=== PATIENT | female | born 1940 | race Caucasian/White ===

== ENCOUNTER 2023-11-04 08:18 | Outpatient (AMB) | payer BC, SELFPAY ==
--- NOTE | 2023-11-04 08:07 | MHC.PC.OV ---
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: No Allergies No Known Allergies Allergy (Verified 11/04/23 08:24) Tobacco use date assessed: 11/04/23 Fall risk assessment: No Falls in past year Last assessed Fall Risk: 11/04/23 Dental Screening Dental Screen Date: 11/04/23 Did you have a dental visit in the last 12 months?: Yes Did you have a dental problem in the last 6 months where you did not have access to dental care?: No Was dental information given to patient?: Patient has dentist HPI HPI Comments History of Present Illness Details The patient is a 83 year old female with a past medical history of hypertension, low B12 presenting for preoperative exam. Left cataract Dr Garcia. CV: She is on lisinopril 2.5mg tablet oral daily. Blood pressure well controlled. Denies chest pain, shortness of breath, dizziness, LE edema No chronic lung disease, no diabetes, no sleep apnea, no CAD, no CKD. Preventive DXA 08/2017 -Tdap 2020 -Pneumonia vaccine Stopped mammograms. ROS CONSTITUTIONAL: Denies weight loss, fever and chills. HEENT: Denies changes in vision and hearing. RESPIRATORY: Denies SOB and cough. CV: Denies palpitations and CP GI: Denies abdominal pain, nausea, vomiting and diarrhea. : Denies dysuria and urinary frequency. MSK: Denies new myalgia and joint pain. SKIN: Denies rash and pruritus. NEUROLOGICAL: Denies headache PSYCHIATRIC: Denies recent changes in mood. PHYSICAL EXAM: GENERAL: Alert and oriented x 3. NAD EYES: EOMI. Anicteric. HENT: Moist mucous membranes. No scleral icterus. No cervical lymphadenopathy. LUNGS: Clear to auscultation bilaterally. CARDIOVASCULAR: Regular rate and rhythm. No murmur. No JVD. ABDOMEN: Soft, non-tender +bs EXTREMITIES: No edema. Non-tender. SKIN: No rashes or lesions. Warm. NEUROLOGIC: No focal neurological deficits. CN II-XII grossly intact PSYCHIATRIC: Cooperative. Appropriate mood and affect [facility] Medical History (Updated 11/04/23 @ 09:09 by Akua Berry MD) Retinal edema Obesity, Class I, BMI 30-34.9 Low vitamin B12 level HTN (hypertension) Surgical History (Updated 11/04/23 @ 08:51 by Olya Beltran CMA) History of right cataract extraction Family History (Updated 11/04/23 @ 08:52 by Olya Beltran CMA) Mother HTN (hypertension) Brother TIA (transient ischemic attack) Social History Housing: House Patient Tobacco Use Status: Never used Tobacco e-Cigarette/Vaping Use: Never Used Second Hand Smoke Exposure: No service: No Current occupational status: retired Cognitive needs: No Hearing needs: No Vision needs: No Questionnaire PHQ-9 Over the last 2 weeks, how often have you been bothered by any of the following problems? 1. Little interest or pleasure in doing things: not at all 2. Feeling down, depressed, or hopeless: not at all 3. Trouble falling or staying asleep, or sleeping too much: not at all 4. Feeling tired or having little energy: not at all 5. Poor appetite or overeating: not at all 6. Feeling bad about yourself - or that you are a failure or have let yourself or your family down: not at all 7. Trouble concentrating on things, such as reading the newspaper or watching television: not at all 8. Moving or speaking so slowly that other people could have noticed. Or the opposite - being so fidgety or restless that you have been moving around a lot more than usual: not at all 9. Thoughts that you would be better off or of hurting yourself in some way: not at all Total score: 0 Depression Screening Interpretation: Negative (NEG) Depression Screening Done: Yes 85315 - PHQ-9 Billing: Yes Source: Developed by Drs. Omer Worley, Nohemi Smith, Eugene Lord and colleagues, with an educational tyler from [employer]. Thrive Questionnaire Date Thrive assessed: 11/04/23 I am a: Patient Within the past 12 months, did the food you bought not last and you didn't have the money to get more?: Never true Within the past 12 months, did you worry whether your food would run out before you got money to buy more?: Never true Do you have trouble paying for medicines?: No Do you have trouble getting transportation to medical appointments?: No Do you have trouble paying your heating and electricity bill?: No Do you have trouble taking care of your child, family member or friend?: No Do you have trouble with day-to-day activities such as bathing, preparing meals, shopping, managing finances, etc.?: No Are you currently unemployed and looking for a job?: No Are you interested in more education?: No Please select the resources that you would like help with: None Currently or been in a relationship where the following occur: No concerns reported THRIVE Score: 0 AUDIT C Alcohol Use Questionnaire (AUDIT-C) 1. How often do you have a drink containing alcohol?: 2-3 times a week 2. How many drinks containing alcohol do you have on a typical day when you are drinking?: 1 or 2 3. How often do you have six or more drinks on one occasion?: Never Total Score: 3 DELORES-7 AMB Questionnaire DELORES-7 Date DELORES - 7 assessed: 11/04/23 Feeling nervous, anxious, or on edge: 1 = Several days Not being able to stop or control worryin = Several days Worrying too much about different things: 1 = Several days Trouble relaxin = Not at all Being so restless that it is hard to sit still: 0 = Not at all Becoming easily annoyed or irritable: 0 = Not at all Feeling afraid as if something awful might happen: 0 = Not at all Total DELORES-7 score (0-4 normal; 5-9 mild; 10-14 moderate; 15-21 severe): 3 Source: Developed by Drs. Omer Worley, Nohemi Smith, Eugene Lord and colleagues, with an educational tyler from [employer]. DELORES-7 Assessment Billing DELORES-7 Assessment Tool: DELORES-7 Assessment 23567 Physical exam (Primary Care) Tobacco/Smoking Status: Tobacco use Status Tobacco use date assessed 11/04/23 11/04/23 08:31 Patient Tobacco Use Status Never used Tobacco 11/04/23 08:31 e-Cigarette/Vaping Use Never Used 11/04/23 08:31 Depression Screening Interpretation: Negative (NEG) Currently or been in a relationship where the following occur: No concerns reported Assessment and Plan Assessment & Plan (1) Preop examination: Code(s): Z01.818 - Encounter for other preprocedural examination Plan: Patient evaluated for preoperative cardiac assessment No CAD, lung disease, CKD, ANGEL. HTN well controlled EKG reviewed She is average risk patient for low risk surgery Patient may proceed with procedure without additional cardiac testing She can take her BP pill with a sip of water on the day of procedure (2) HTN (hypertension): Code(s): I10 - Essential (primary) hypertension Qualifiers: Hypertension type: primary hypertension Qualified Code(s): I10 - Essential (primary) hypertension (3) Cataract: Code(s): H26.9 - Unspecified cataract Orders: Orders AMB EKG-In Office Today H26.9 - Unspecified cataract, Z01.810 - Encounter for preprocedural cardiovascular examination, Z01.818 - Encounter for other preprocedural examination Medications: New lisinopril 2.5 mg PO DAILY 90 tabs 3RF Coding Level of Care Code Est Pt Level 5 (66927) Diagnoses Preop examination Z01.818 Primary hypertension I10 Hypertension type: primary hypertension Cataract H26.9 Additional Codes DELORES-7 Assessment Billing - DELORES-7 Assessment Tool: DELORES-7 Assessment [id number] ([id number]) Time Spent (min) 47
[2023-11-04 08:52] VITALS: BP 144/88; PULSE 73; RESP 12; TEMP 36.8; O2SAT 96; BMI 21.8
[2023-11-04 08:53] VITALS: BP 128/82
== END 2023-11-04 09:17 | disposition home or self-care (01) ==
PROVIDERS: PCP Internal Medicine; Visit Provider Internal Medicine
DX: H26.9 Unspecified cataract (principal); Z01.818 Encounter for other preprocedural examination; I10 Essential (primary) hypertension
CPT/HCPCS: 99215

== ENCOUNTER 2024-04-20 08:19 | Outpatient (AMB) | payer BC, SELFPAY ==
--- NOTE | 2024-04-20 08:26 | A.OFFPC_ITS ---
Intake Visit Reasons: [id number] Intake Note: patient here for Allergies No Known Allergies Allergy (Verified 11/04/23 08:24) Tobacco use date assessed: 11/04/23 Dental Screening Dental Screen Date: 11/04/23 [facility] Medical History (Updated 11/04/23 @ 09:09 by Akua Berry MD) Retinal edema Obesity, Class I, BMI 30-34.9 Low vitamin B12 level HTN (hypertension) Surgical History (Updated 11/04/23 @ 08:51 by Olya Beltran CMA) History of right cataract extraction Family History (Updated 11/04/23 @ 08:52 by Olya Beltran CMA) Mother HTN (hypertension) Brother TIA (transient ischemic attack) Social History Housing: House Patient Tobacco Use Status: Never used Tobacco e-Cigarette/Vaping Use: Never Used Second Hand Smoke Exposure: No service: No Current occupational status: retired Cognitive needs: No Hearing needs: No Vision needs: No Questionnaire Thrive Questionnaire Date Thrive assessed: 11/04/23 DELORES-7 AMB Questionnaire DELORES-7 Date DELORES - 7 assessed: 11/04/23 Source: Developed by Drs. Omer Worley, Nohemi Smith, Eugene Lord and colleagues, with an educational tyler from [employer]. Physical exam (Primary Care) Tobacco/Smoking Status: Tobacco use Status Tobacco use date assessed 11/04/23 11/04/23 08:31 Patient Tobacco Use Status Never used Tobacco 11/04/23 08:31 e-Cigarette/Vaping Use Never Used 11/04/23 08:31 Thrive Assessment: Date of Thrive Assessment Date Thrive assessed 11/04/23 11/04/23 08:55 Coding
--- NOTE | 2024-04-20 08:30 | A.OFFVIS_ITS ---
Intake Vital Signs 04/20/24 08:32 04/20/24 08:52 Height 5 ft 7 in Weight 195 lb 2 oz BMI 30.6 BP 161/81 H 136/74 Blood Pressure Location Rt brachial Rt brachial Position Sitting Respiration 16 Pulse 90 Pulse Source Pulse Oximeter Temp 98.2 F Temp Source Temporal Artery Scan Pulse Oximetry (%) 96 Oxygen Delivery Method Room Air Intake Visit Reasons: [id number] Intake Note: patient here for AWV Rn Admissions Required: No Allergies No Known Allergies Allergy (Verified 04/20/24 08:31) Is last menstrual period known: No Post menopausal: No Patient : No Do you need a note to return to daycare/school/sports/work: No HPI HPI Comments History of Present Illness Details The patient is a 84 year old female with a past medical history of h ypertension, low B12 presenting for AWV CV: on lisinopril 2.5mg tablet oral daily. Blood pressure well controlled. Denies chest pain, shortness of breath, dizziness, LE edema No chronic lung disease, no diabetes, no sleep apnea, no CAD, no CKD. Preventive DXA 08/2017 -Tdap 2020 -Stopped mammograms. -Got COVID RSV Flu Follows with Dr Garcia HRCarlitos reviewed. Care team reviewed, medications reconciled ROS CONSTITUTIONAL: Denies weight loss, fever and chills. HEENT: Denies changes in vision and hearing. RESPIRATORY: Denies SOB and cough. CV: Denies palpitations and CP GI: Denies abdominal pain, nausea, vomiting and diarrhea. : Denies dysuria and urinary frequency. MSK: Denies new myalgia and joint pain. SKIN: Denies rash and pruritus. NEUROLOGICAL: Denies headache PSYCHIATRIC: Denies recent changes in mood. PHYSICAL EXAM: GENERAL: Alert and oriented x 3. NAD EYES: EOMI. Anicteric. HENT: Moist mucous membranes. No scleral icterus. No cervical lymphadenopathy. LUNGS: Clear to auscultation bilaterally. CARDIOVASCULAR: Regular rate and rhythm. No murmur. No JVD. ABDOMEN: Soft, non-tender +bs EXTREMITIES: No edema. Non-tender. SKIN: No rashes or lesions. Warm. NEUROLOGIC: No focal neurological deficits. CN II-XII grossly intact PSYCHIATRIC: Cooperative. Appropriate mood and affect [facility] Medical History (Updated 01/05/25 @ 20:50 by Akua Berry MD) Retinal edema Obesity, Class I, BMI 30-34.9 Low vitamin B12 level HTN (hypertension) Surgical History (Updated 11/04/23 @ 08:51 by Olya Beltran CMA) History of right cataract extraction Family History (Updated 11/04/23 @ 08:52 by Olya Beltran CMA) Mother HTN (hypertension) Brother TIA (transient ischemic attack) Social History Housing: House Patient Tobacco Use Status: Never used Tobacco e-Cigarette/Vaping Use: Never Used Second Hand Smoke Exposure: No service: No Current occupational status: retired Cognitive needs: No Hearing needs: No Vision needs: No Questionnaire Medicare Wellness Checkup What is your age?: 80 or older What gender do you identify with?: female Physical Exam Vital Signs: Last Vital Signs Temp 98.2 F 04/20/24 08:32 Pulse 90 04/20/24 08:32 Resp 16 04/20/24 08:32 BP 136/74 04/20/24 08:52 Pulse Ox 96 04/20/24 08:32 Oxygen Delivery Method Room Air 04/20/24 08:32 BMI result Body Mass Index 30.6 Assessment & Plan Assessment & Plan (1) Encounter for annual wellness visit (AWV) in Medicare patient: Code(s): Z00.00 - Encounter for general adult medical examination without abnormal findings Plan: see HPI. Chronic medical conditions, meds, HRA including care team reviewed (2) HTN (hypertension): Code(s): I10 - Essential (primary) hypertension Qualifiers: Hypertension type: primary hypertension Qualified Code(s): I10 - Essential (primary) hypertension Plan: continue lisinopril Orders: Orders Complete Blood Count Auto Diff 04/20/24 H26.9 - Unspecified cataract, I10 - Essential (primary) hypertension, R79.89 - Other specified abnormal findings of blood chemistry Comprehensive Met. Panel 04/20/24 H26.9 - Unspecified cataract, I10 - Essential (primary) hypertension, R79.89 - Other specified abnormal findings of blood chemistry Lipid Panel 04/20/24 H26.9 - Unspecified cataract, I10 - Essential (primary) hypertension, R79.89 - Other specified abnormal findings of blood chemistry Vitamin B12 and Folate 04/20/24 H26.9 - Unspecified cataract, I10 - Essential (primary) hypertension, R79.89 - Other specified abnormal findings of blood chemistry Medications: Refilled lisinopril 2.5 mg PO DAILY 90 tabs 3RF Coding Level of Care Code Medicare Subsequent (G0439) Diagnoses Encounter for annual wellness visit (AWV) in Medicare patient Z00.00 Primary hypertension I10 Hypertension type: primary hypertension
[2024-04-20 08:32] VITALS: BP 161/81; PULSE 90; RESP 16; TEMP 36.8; O2SAT 96; BMI 30.6
[2024-04-20 08:52] VITALS: BP 136/74
== END 2024-04-20 09:03 | disposition home or self-care (01) ==
LOC: HO.HMCFM 08:19
PROVIDERS: PCP Internal Medicine; Visit Provider Internal Medicine
DX: I10 Essential (primary) hypertension (principal)

== ENCOUNTER → 2024-04-20 08:19 | Outpatient (BNVA) | payer BC, SELFPAY | PROVIDERS: PCP Internal Medicine; Visit Provider Internal Medicine ==

== ENCOUNTER 2024-04-20 08:55 | Outpatient (REF) | payer BC, SELFPAY ==
[2024-04-20 11:09] LABS: MANUAL DIFF FLAG NO
[2024-04-20 11:13] LABS: Basophils Percent Auto 0.6 % (0-2); Eosinophils Absolute Auto 0.1 X10*3/uL (0.0-0.4); Eosinophils Percent Auto 2.7 % (0-4); Hematocrit 41.1 % (37.0-47.0); Hemoglobin 13.4 g/dl (12.0-16.0); Imm Gran Abs Auto 0.01 X10*3/uL (0.00-0.03); Imm Gran Pct Auto 0.2 % (0.0-0.4); Lymphocytes Absolute Auto 1.2 X10*3/uL (1.2-4.9); Lymphocytes Percent Auto 25.3 % (20-40); Mean Corpuscular HGB Conc 32.6 g/dl (31.0-35.0); Mean Corpuscular Hemoglobin 29.4 pg (27.0-33.0); Mean Corpuscular Volume 90.1 fL (80.0-98.0); Mean Platelet Volume 10.3 fL (9.4-12.3); Monocytes Absolute Auto 0.5 X10*3/uL (0.1-1.2); Monocytes Percent Auto 10.6 % (2-11); Neutrophils Absolute Auto 2.9 x10*3/uL (2.0-8.3); Neutrophils Percent Auto 60.6 % (45-73); Platelet Count 294 X10*3/uL (160-400); Red Blood Count 4.56 X10*6/uL (4.20-5.50); Red Cell Distribution Width 14.1 % (11.0-16.0); White Blood Count 4.8 X10*3/uL (4.8-10.8)
[2024-04-20 11:44] LABS: Alanine Aminotransferase 14 U/L (0-31); Albumin Level 3.8 g/dL (3.5-5.0); Alkaline Phosphatase 72 U/L (39-117); Anion Gap 12 (12-20); Aspartate Amino Transferase 18 U/L (5-31); Bilirubin Total 0.6 mg/dL (0.0-1.0); Blood Urea Nitrogen 19 mg/dL (9-16); Calcium 8.6 mg/dL (8.4-10.2); Carbon Dioxide 27 mmol/L (22-29); Chloride 105 mmol/L (96-108); Cholesterol 206 mg/dL (<200); Estimated Glomerular Filt Rate > 60; Glucose Random 88 mg/dL (60-115); HDL Cholesterol 64 mg/dL (>40); LDL Cholesterol Calculated 123 mg/dL (<100); Potassium 4.1 mmol/L (3.3-5.1); Sodium 140 mmol/L (135-145); Total Protein 6.9 g/dL (6.5-8.0); Triglycerides 96 mg/dL (<150)
[2024-04-20 12:01] LABS: Folate 11.2 ng/mL (> or = 4.0); Vitamin B12 930 pg/mL (200-900)
== END 2024-04-20 08:56 | disposition home or self-care (01) ==
LOC: HO.WFDLDS 08:55
PROVIDERS: Visit Provider Internal Medicine
DX: I10 Essential (primary) hypertension (principal); H26.9 Unspecified cataract; R79.89 Other specified abnormal findings of blood chemistry
CPT/HCPCS: 36415; 80053; 80061; 82607; 82746; 85025

== ENCOUNTER 2024-10-19 08:58 | Outpatient (AMB) | payer BC, SELFPAY ==
--- NOTE | 2024-10-19 09:07 | MHC.PC.OV ---
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 Allergies No Known Allergies Allergy (Verified 10/19/24 09:07) Tobacco use date assessed: 10/19/24 Fall risk assessment: No Falls in past year Last assessed Fall Risk: 10/19/24 Dental Screening Dental Screen Date: 10/19/24 Did you have a dental visit in the last 12 months?: Yes Did you have a dental problem in the last 6 months where you did not have access to dental care?: No Was dental information given to patient?: Patient has dentist HPI HPI Comments History of Present Illness Details The patient is a 84 year old female with a past medical history of hypertension, low B12, presenting for follow up CV: on lisinopril 2.5mg tablet oral daily. Blood pressure is fairly good today. She has white coat hypertension. Denies chest pain, shortness of breath, dizziness, LE edema No chronic lung disease, no diabetes, no sleep apnea, no CAD, no CKD. Follows with Dr Mann in [place] Preventive DXA 08/2017 -Tdap 2020 -Stopped mammograms. -Got COVID RSV Flu ROS CONSTITUTIONAL: Denies weight loss, fever and chills. HEENT: Denies changes in vision and hearing. RESPIRATORY: Denies SOB and cough. CV: Denies palpitations and CP GI: Denies abdominal pain, nausea, vomiting and diarrhea. : Denies dysuria and urinary frequency. MSK: Denies new myalgia and joint pain. SKIN: Denies rash and pruritus. NEUROLOGICAL: Denies headache PSYCHIATRIC: Denies recent changes in mood. PHYSICAL EXAM: GENERAL: Alert and oriented x 3. NAD EYES: EOMI. Anicteric. HENT: Moist mucous membranes. No scleral icterus. No cervical lymphadenopathy. LUNGS: Clear to auscultation bilaterally. CARDIOVASCULAR: Regular rate and rhythm. No murmur. No JVD. ABDOMEN: Soft, non-tender +bs EXTREMITIES: No edema. Non-tender. SKIN: No rashes or lesions. Warm. NEUROLOGIC: No focal neurological deficits. CN II-XII grossly intact PSYCHIATRIC: Cooperative. Appropriate mood and affect [facility] Medical History Retinal edema Obesity, Class I, BMI 30-34.9 Low vitamin B12 level HTN (hypertension) Surgical History History of right cataract extraction Family History Mother HTN (hypertension) Brother TIA (transient ischemic attack) Social History Housing: House Patient Tobacco Use Status: Never used Tobacco e-Cigarette/Vaping Use: Never Used Second Hand Smoke Exposure: No service: No Current occupational status: retired Cognitive needs: No Hearing needs: No Vision needs: No Questionnaire Thrive Questionnaire Date Thrive assessed: 11/04/23 AUDIT C Alcohol Use Questionnaire (AUDIT-C) 1. How often do you have a drink containing alcohol?: 2-3 times a week 2. How many drinks containing alcohol do you have on a typical day when you are drinking?: 1 or 2 3. How often do you have six or more drinks on one occasion?: Never Total Score: 3 DELORES-7 AMB Questionnaire DELORES-7 Date DELORES - 7 assessed: 11/04/23 Source: Developed by Drs. Omer Worley, Nohemi Smith, Eugene Lord and colleagues, with an educational tyler from [employer]. Physical exam (Primary Care) Vital Signs: Last Vital Signs Temp 98.2 F 10/19/24 09:11 Pulse 93 10/19/24 09:11 Resp 14 10/19/24 09:11 BP 136/90 H 10/19/24 09:21 Pulse Ox 96 10/19/24 09:11 Oxygen Delivery Method Room Air 10/19/24 09:11 BMI result Body Mass Index 30.1 Tobacco/Smoking Status: Tobacco use Status Tobacco use date assessed 10/19/24 10/19/24 09:09 Patient Tobacco Use Status Never used Tobacco 10/19/24 09:09 e-Cigarette/Vaping Use Never Used 10/19/24 09:09 Thrive Assessment: Date of Thrive Assessment Date Thrive assessed 11/04/23 10/19/24 09:09 Coding Level of Care Code Est Pt Level 3 (81669) Complex EM visit Add On G2211 Diagnoses Primary hypertension I10 Hypertension type: primary hypertension Cataract, unspecified cataract type, unspecified laterality H26.9 Cataract type: unspecified Laterality: unspecified laterality Low vitamin B12 level R79.89 Assessment & Plan Assessment & Plan (1) HTN (hypertension): Code(s): I10 - Essential (primary) hypertension Category: Medical Qualifiers: Hypertension type: primary hypertension Qualified Code(s): I10 - Essential (primary) hypertension (2) Cataract: Code(s): H26.9 - Unspecified cataract Category: Medical Qualifiers: Cataract type: unspecified Laterality: unspecified laterality Qualified Code(s): H26.9 - Unspecified cataract (3) Low vitamin B12 level: Code(s): R79.89 - Other specified abnormal findings of blood chemistry Category: Medical Plan 84 year old for follow up HTN-adequately controlled. Higher in office Labs ordered Eye exams utd Orders: Orders Lipid Panel 5 Months H26.9 - Unspecified cataract, I10 - Essential (primary) hypertension, R79.89 - Other specified abnormal findings of blood chemistry, Z13.220 - Encounter for screening for lipoid disorders Vitamin B12 and Folate 5 Months H26.9 - Unspecified cataract, I10 - Essential (primary) hypertension, R79.89 - Other specified abnormal findings of blood chemistry, Z13.220 - Encounter for screening for lipoid disorders Complete Blood Count Auto Diff 5 Months H26.9 - Unspecified cataract, I10 - Essential (primary) hypertension, R79.89 - Other specified abnormal findings of blood chemistry, Z13.220 - Encounter for screening for lipoid disorders Comprehensive Met. Panel 5 Months H26.9 - Unspecified cataract, I10 - Essential (primary) hypertension, R79.89 - Other specified abnormal findings of blood chemistry, Z13.220 - Encounter for screening for lipoid disorders Medications: Refilled lisinopril 2.5 mg PO DAILY 90 tabs 3RF
[2024-10-19 09:11] VITALS: BP 134/92; PULSE 93; RESP 14; TEMP 36.8; O2SAT 96; BMI 30.1
[2024-10-19 09:21] VITALS: BP 136/90
== END 2024-10-19 09:38 | disposition home or self-care (01) ==
LOC: HO.HMCFM 08:59
PROVIDERS: PCP Internal Medicine; Visit Provider Internal Medicine
DX: I10 Essential (primary) hypertension (principal); H26.9 Unspecified cataract; R79.89 Other specified abnormal findings of blood chemistry

== ENCOUNTER → 2024-10-19 08:58 | Outpatient (BNVA) | payer BC, SELFPAY | PROVIDERS: PCP Internal Medicine; Visit Provider Internal Medicine ==

== ENCOUNTER 2025-02-01 10:49 | Outpatient (AMB) | payer BC, SELFPAY ==
--- NOTE | 2025-02-01 10:59 | MHC.PC.OV ---
Vital Signs 02/01/25 11:06 Height 5 ft 7 in Weight 190 lb BMI 29.8 BP 116/72 Blood Pressure Location Rt brachial Position Sitting Respiration 14 Pulse 91 Pulse Source Pulse Oximeter Temp 98.5 F Temp Source Oral Pulse Oximetry (%) 95 Oxygen Delivery Method Room Air Intake Visit Reasons: Needs Psychical therapy referral Intake Note: Physical therapy referral right leg and knee pain. Went to urgent care in [place]. Had ultrasound at [facility] to rule out DVT. Skin Fitter Required: No Allergies No Known Allergies Allergy (Verified 02/01/25 11:05) Tobacco use date assessed: 10/19/24 Fall risk assessment: No Falls in past year Last assessed Fall Risk: 02/01/25 Dental Screening Dental Screen Date: 02/01/25 Did you have a dental visit in the last 12 months?: Yes Did you have a dental problem in the last 6 months where you did not have access to dental care?: No Was dental information given to patient?: Patient has dentist HPI HPI Comments History of Present Illness Details The patient is a 84 year old female with a past medical history of hypertension, low B12, presenting for follow up She was evaluated at an outside urgent care in [place] in december for right thigh, knee pain. She was send for right duplex at [facility] [place]. She developed bruising around the thigh then both the pain and bruising subsided with muscle relaxer. She is having no residual discomfort CV: on lisinopril 2.5mg tablet oral daily. She has white coat hypertension. Denies chest pain, shortness of breath, dizziness, LE edema No chronic lung disease, no diabetes, no sleep apnea, no CAD, no CKD. Follows with Dr Mann in [place] Preventive DXA 08/2017 -Tdap 2020 -Stopped mammograms. -Got COVID RSV Flu ROS CONSTITUTIONAL: Denies weight loss, fever and chills. HEENT: Denies changes in vision and hearing. RESPIRATORY: Denies SOB and cough. CV: Denies palpitations and CP GI: Denies abdominal pain, nausea, vomiting and diarrhea. : Denies dysuria and urinary frequency. MSK: Denies new myalgia and joint pain. SKIN: Denies rash and pruritus. NEUROLOGICAL: Denies headache PSYCHIATRIC: Denies recent changes in mood. PHYSICAL EXAM: GENERAL: Alert and oriented x 3. NAD EYES: EOMI. Anicteric. HENT: Moist mucous membranes. No scleral icterus. No cervical lymphadenopathy. LUNGS: Clear to auscultation bilaterally. CARDIOVASCULAR: Regular rate and rhythm. No murmur. No JVD. ABDOMEN: Soft, non-tender +bs EXTREMITIES: No edema. Non-tender. SKIN: No rashes or lesions. Warm. NEUROLOGIC: No focal neurological deficits. CN II-XII grossly intact PSYCHIATRIC: Cooperative. Appropriate mood and affect [facility] Medical History Retinal edema Obesity, Class I, BMI 30-34.9 Low vitamin B12 level HTN (hypertension) Surgical History History of right cataract extraction Family History Mother HTN (hypertension) Brother TIA (transient ischemic attack) Social History Housing: House Patient Tobacco Use Status: Never used Tobacco e-Cigarette/Vaping Use: Never Used Second Hand Smoke Exposure: No service: No Current occupational status: retired Cognitive needs: No Hearing needs: No Vision needs: No Questionnaire Thrive Questionnaire Date Thrive assessed: 11/04/23 DELORES-7 AMB Questionnaire DELORES-7 Date DELORES - 7 assessed: 11/04/23 Source: Developed by Drs. Omer Worley, Nohemi Smith, Eugene Lord and colleagues, with an educational tyler from [employer]. Physical exam (Primary Care) Vital Signs: Last Vital Signs Temp 98.5 F 02/01/25 11:06 Pulse 91 02/01/25 11:06 Resp 14 02/01/25 11:06 BP 116/72 02/01/25 11:06 Pulse Ox 95 02/01/25 11:06 Oxygen Delivery Method Room Air 02/01/25 11:06 BMI result Body Mass Index 29.8 Tobacco/Smoking Status: Tobacco use Status Tobacco use date assessed 10/19/24 02/01/25 11:01 Patient Tobacco Use Status Never used Tobacco 02/01/25 11:01 e-Cigarette/Vaping Use Never Used 02/01/25 11:01 Thrive Assessment: Date of Thrive Assessment Date Thrive assessed 11/04/23 02/01/25 11:01 Coding Level of Care Code Est Pt Level 4 (90480) Diagnoses Pain of right lower extremity M79.604 Laterality: right Assessment & Plan Assessment & Plan (1) Leg pain: Code(s): M79.606 - Pain in leg, unspecified Category: Medical Qualifiers: Laterality: right Qualified Code(s): M79.604 - Pain in right leg Plan Right leg pain after weeding, resolved u/s reviewed Check lyme HTN controlled Orders: Orders Lyme IgG/IgM w/reflex to WB Today M79.606 - Pain in leg, unspecified
[2025-02-01 11:06] VITALS: BP 116/72; PULSE 91; RESP 14; TEMP 36.9; O2SAT 95; BMI 29.8
== END 2025-02-01 11:34 | disposition home or self-care (01) ==
LOC: HO.HMCFM 10:49
PROVIDERS: PCP Internal Medicine; Visit Provider Internal Medicine
DX: M79.604 Pain in right leg (principal)

== ENCOUNTER 2025-02-01 10:49 | Outpatient (REF) | payer BC, SELFPAY ==
[2025-02-02 06:33] LABS: Lyme Abs Screen <0.90 index
== END 2025-02-01 10:50 | disposition home or self-care (01) ==
LOC: HO.WFDLDS 10:49
PROVIDERS: PCP Internal Medicine; Visit Provider Internal Medicine
DX: M79.604 Pain in right leg (principal); R79.89 Other specified abnormal findings of blood chemistry; H26.9 Unspecified cataract; I10 Essential (primary) hypertension; Z13.220 Encounter for screening for lipoid disorders
CPT/HCPCS: 36415; 86617; 86618

== ENCOUNTER 2025-04-22 08:58 | Outpatient (REF) | payer BC, SELFPAY ==
[2025-04-22 12:41] LABS: MANUAL DIFF FLAG NO
[2025-04-22 12:51] LABS: Hematocrit 44.9 % (37.0-47.0); Hemoglobin 14.6 g/dl (12.0-16.0); Imm Gran Abs Auto 0.01 X10*3/uL (0.00-0.03); Imm Gran Pct Auto 0.2 % (0.0-0.4); Lymphocytes Absolute Auto 1.5 X10*3/uL (1.2-4.9); Mean Corpuscular HGB Conc 32.5 g/dl (31.0-35.0); Mean Corpuscular Hemoglobin 29.1 pg (27.0-33.0); Mean Corpuscular Volume 89.4 fL (80.0-98.0); NRBC Abs Auto 0.000 X10*3/uL (0.0-0.012); NRBC Pct Auto 0.0 /100WBC (0.0-0.2); Platelet Count 320 X10*3/uL (160-400); Red Blood Count 5.02 X10*6/uL (4.20-5.50); White Blood Count 5.5 X10*3/uL (4.8-10.8)
[2025-04-22 13:46] LABS: Alanine Aminotransferase 8 U/L (0-31); Albumin Level 4.1 g/dL (3.5-5.0); Alkaline Phosphatase 69 U/L (39-117); Anion Gap 13 (12-20); Aspartate Amino Transferase 19 U/L (5-31); Blood Urea Nitrogen 15 mg/dL (9-16); Calcium 9.2 mg/dL (8.4-10.2); Carbon Dioxide 25 mmol/L (22-29); Chloride 106 mmol/L (96-108); Cholesterol 223 mg/dL (<200); Estimated Glomerular Filt Rate > 60; HDL Cholesterol 69 mg/dL (>40); Potassium 4.5 mmol/L (3.3-5.1); Sodium 139 mmol/L (135-145); Total Protein 7.0 g/dL (6.5-8.0); Triglycerides 83 mg/dL (<150)
[2025-04-22 14:23] LABS: Folate 11.1 ng/mL (> or = 4.0); Vitamin B12 1003 pg/mL (200-900)
== END 2025-04-22 08:59 | disposition home or self-care (01) ==
LOC: HO.WFDLDS 08:58
PROVIDERS: PCP Internal Medicine; Visit Provider Internal Medicine
DX: Z13.220 Encounter for screening for lipoid disorders (principal); R79.89 Other specified abnormal findings of blood chemistry; H26.9 Unspecified cataract; I10 Essential (primary) hypertension
CPT/HCPCS: 36415; 80053; 80061; 82607; 82746; 85025

== ENCOUNTER 2025-04-22 08:58 | Outpatient (AMB) | payer BC, SELFPAY ==
--- NOTE | 2025-04-22 09:07 | A.OFFPC_ITS ---
Vital Signs 04/22/25 09:08 Height 5 ft 7 in Weight 188 lb 8 oz BMI 29.5 BP 136/84 Blood Pressure Location Rt brachial Position Sitting Respiration 14 Pulse 97 Pulse Source Pulse Oximeter Pulse Oximetry (%) 95 Oxygen Delivery Method Room Air Intake Visit Reasons: follow up - see comments Intake Note: Follow up Cms Expert Required: No Allergies No Known Allergies Allergy (Verified 04/22/25 09:10) Tobacco use date assessed: 04/22/25 Fall risk assessment: No Falls in past year Last assessed Fall Risk: 04/22/25 Dental Screening Dental Screen Date: 02/01/25 HPI HPI Comments History of Present Illness Details The patient is a 84 year old female with a past medical history of hypertension, low B12, presenting for follow up CV: on lisinopril 2.5mg tablet oral daily. Blood pressure is adequately controlled. She has white coat hypertension. Denies chest pain, shortness of breath, dizziness, LE edema No chronic lung disease, no diabetes, no sleep apnea, no CAD, no CKD. Follows with Dr Mann in [place] Preventive DXA 08/2017 -Tdap 2020 -Stopped mammograms. -Got COVID RSV Flu ROS CONSTITUTIONAL: Denies weight loss, fever and chills. HEENT: Denies changes in vision and hearing. RESPIRATORY: Denies SOB and cough. CV: Denies palpitations and CP GI: Denies abdominal pain, nausea, vomiting and diarrhea. : Denies dysuria and urinary frequency. MSK: Denies new myalgia and joint pain. SKIN: Denies rash and pruritus. NEUROLOGICAL: Denies headache PSYCHIATRIC: Denies recent changes in mood. PHYSICAL EXAM: GENERAL: Alert and oriented x 3. NAD EYES: EOMI. Anicteric. HENT: Moist mucous membranes. No scleral icterus. No cervical lymphadenopathy. LUNGS: Clear to auscultation bilaterally. CARDIOVASCULAR: Regular rate and rhythm. No murmur. No JVD. ABDOMEN: Soft, non-tender +bs EXTREMITIES: No edema. Non-tender. SKIN: No rashes or lesions. Warm. NEUROLOGIC: No focal neurological deficits. CN II-XII grossly intact PSYCHIATRIC: Cooperative. Appropriate mood and affect [facility] Medical History Retinal edema Obesity, Class I, BMI 30-34.9 Low vitamin B12 level HTN (hypertension) Surgical History History of right cataract extraction Family History Mother HTN (hypertension) Brother TIA (transient ischemic attack) Social History (Updated 04/22/25 @ 09:19 by Olya Beltran CMA) Housing: House Alcohol intake: current Patient Tobacco Use Status: Never used Tobacco e-Cigarette/Vaping Use: Never Used Second Hand Smoke Exposure: No service: No Current occupational status: retired Cognitive needs: No Hearing needs: No Vision needs: No Questionnaire PHQ-9 Over the last 2 weeks, how often have you been bothered by any of the following problems? 58074 - PHQ-9 Billing: Patient declined-do not bill Source: Developed by Drs. Omer Worley, Nohemi Smith, Eugene Lord and colleagues, with an educational tyler from [employer]. Thrive Questionnaire Date Thrive assessed: 11/04/23 AUDIT C Alcohol Use Questionnaire (AUDIT-C) 1. How often do you have a drink containing alcohol?: 2-3 times a week 2. How many drinks containing alcohol do you have on a typical day when you are drinking?: 1 or 2 3. How often do you have six or more drinks on one occasion?: Never Total Score: 3 DELORES-7 AMB Questionnaire DELORES-7 Date DELORES - 7 assessed: 11/04/23 Source: Developed by Drs. Omer Worley, Nohemi Smith, Eugene Lord and colleagues, with an educational tyler from [employer]. Physical exam (Primary Care) Vital Signs: Last Vital Signs Pulse 97 04/22/25 09:08 Resp 14 04/22/25 09:08 BP 136/84 04/22/25 09:08 Pulse Ox 95 04/22/25 09:08 Oxygen Delivery Method Room Air 04/22/25 09:08 BMI result Body Mass Index 29.5 Tobacco/Smoking Status: Tobacco use Status Tobacco use date assessed 04/22/25 04/22/25 09:14 Patient Tobacco Use Status Never used Tobacco 04/22/25 09:19 e-Cigarette/Vaping Use Never Used 04/22/25 09:19 Thrive Assessment: Date of Thrive Assessment Date Thrive assessed 11/04/23 04/22/25 09:14 Coding Level of Care Code Est Pt Level 3 (08197) Diagnoses Primary hypertension I10 Hypertension type: primary hypertension Low vitamin B12 level R79.89 Assessment & Plan Assessment & Plan (1) HTN (hypertension): Code(s): I10 - Essential (primary) hypertension Category: Medical Qualifiers: Hypertension type: primary hypertension Qualified Code(s): I10 - Essential (primary) hypertension (2) Low vitamin B12 level: Code(s): R79.89 - Other specified abnormal findings of blood chemistry Category: Medical Plan 84 year old for blood pressure follow up Blood pressure is well controlled on lisinopril. Low salt diet b12 deficiency-continue supplementation Continue ophtho follow up for retinal edema. S/p cataract Medications: Changed From lisinopril 2.5 mg PO DAILY 90 tabs 3RF To lisinopril for refills 2.5 mg PO DAILY 90 tabs 3RF Refilled cyanocobalamin (vitamin B-12) 1,000 mcg PO Q OTHER DAY 45 tabs 3RF
[2025-04-22 09:08] VITALS: BP 136/84; PULSE 97; RESP 14; O2SAT 95; BMI 29.5
--- OUTSIDE RECORDS SUMMARY | 2025-04-22 09:21 | XMS_ITS | Patient Health Record ---
Author Organization [facility] Address [address] [place] [address] Care Team Providers Care Clothing Sorter Name Role Phone JASON ISRAEL md Primary Care Provider JASON Damian Unavailable [phone] Allergies No Known Allergies Reason For Referral No Information Medications Medication SIG (Take, Route, Frequency, Duration) Notes Start Date End Date Status prednisoLONE Acetate 1 % Suspension 1 gtt in each affected eye 4 times a day; Duration: 2 day(s) Active Frances 128 TID NAME ONLY Conversion from Multum Review and pick correct strength-formulati on from [employer] options. If intended option is not shown, discontinue and re-order from Quick Search. Active levoFLOXacin 500 MG Tablet 1 tab(s) orally every 24 hours; Duration: 7 day(s) Active B-12 1000 MCG Tablet 1 tab(s) orally once a day; Duration: 90 day(s) 04/18/2021 Active Calcium Citrate 250 MG Tablet 1 tab(s) orally 2 times a day; Duration: 30 day(s) Active B 12 1000MCG 1 TAB ORALLY QHS; Duration: 90 DAYS *Please review for potential replacement for e-prescription and drug interaction check* Active Lisinopril 2.5 MG Tablet 1 tab(s) orally once a day; Duration: 90 days fill for 30 if 90 is not covered Active Ketorolac Tromethamine 0.5 % Solution 1 gtt in each affected eye 4 times a day Not-Taking Immunizations Vaccine Route Administration Date Status Comme nts Pfizer COVID-19,mRNA, LNP-S, PF, 30mcg/0.3mL dose IM Intramuscular 06/12/2020 Administered [id number] Pfizer COVID-19,mRNA, LNP-S, PF, 30mcg/0.3mL dose IM Intramuscular 07/03/2020 Administered [id number] Pfizer COVID-19,mRNA, LNP-S, PF, 30mcg/0.3mL dose IM Intramuscular 01/29/2021 Administered Pneumococcal Prevnar 13 IM Intramuscular 03/18/2017 Admini stered Pneumococcal, PPV 23 IM Intramuscular 03/18/2018 Administe red SHINGRIX HZV VACCINE IM Intramuscular 12/27/2017 Administe red 2/2 Td, State supplied IM Intramuscular 04/18/2021 Administere d Social History Tobacco Use: Social History Observation Description Date Details (start date - stop date) Never Smoker NA - NA Social History Tobacco Use: Social Info Question Answer Notes Smoking Are you a: never smoker Additional Details Category Social Info Options Details General Occupation: Retired- [employer] asbestos exposure: no Past year's travels: None alcohol use: yes Wine 3-4x a week drug use: no Hobbies/Exercise habits: Walks, house work Coffee/Tea/Soda: yes 2 cups of coffe e a day, Tea sometimes, Soda Rare Marital Status single experience no Living with alone Pets none smokers in household no Never Smoke r Section Notes: Never Pap, Mammo, colonscopy : pt refuses Never Pap, Mammo, colonscopy : pt refuses Never Pap, Mammo, colonscopy : pt refuses Never Pap, Mammo, colonscopy : pt refuses Problems Problem Type SNOMED Code ICD Code Onset Dates Problem Status W/U Status Risk Notes Problem Essential hypertension (29935857) Essential hypertension (I10) Active confirmed Problem Vitamin B12 deficiency (non anemic) (50705569) B12 deficiency (E53.8) Active confirmed Problem Leukocytosis (027591623) Leukocytosis, unspecified type (D72.829) Active confirmed Problem Pure hypercholesterolemia (442793391) Pure hypercholesterolemia (E78.00) Active confirmed Problem Retinal tear of righ t eye (218567213) Retinal tear of right eye (H33.311) Active confirmed Plan Of Treatment Pending Test Test Name Order Date CBC W/OUT AUTOMATED DIFF 12/05/2020 CBC w/Automated Diff 04/18/2021 Future Test Test Name Order Date CBC W/OUT AUTOMATED DIFF 12/06/2020 Insurance Providers Payer Name Payer Address Payer Phone Subscriber Number Group Number Insured Name Patient Relationship to Insured Coverage Start Date Coverage End Date [employer] [address] [place] [address] [phone] [id number] ADALGISA ETIENNE Self - patient is the insured Medical (General) History Medical History History ICD Code Hypertension COVID-19 Vaccinated Eye Disease Surgical History Surgery Date(Month/Year) Cataracts 03/11/2017 Bone Density @ [facility], normal 2y repeat 08/04
== END 2025-04-22 09:27 | disposition home or self-care (01) ==
LOC: HO.HMCFM 08:59
PROVIDERS: PCP Internal Medicine; Visit Provider Internal Medicine
DX: I10 Essential (primary) hypertension (principal); R79.89 Other specified abnormal findings of blood chemistry